=== PATIENT | male | born 2005 | race Caucasian/White ===

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

== ENCOUNTER 2024-04-15 10:32 | Emergency (ER) | payer OTHER ==
[~2024-04-15] VITALS: Ht 170.2 cm; Wt 92.1 kg
[~2024-04-15 10:32] MED LIST: BEN10 PO; MAG-27 PO; MAGN296S48 PO
[2024-04-15 11:06] VITALS: BP 131/83; PULSE 79; RESP 16; TEMP 98.2; O2SAT 97
[2024-04-15] MEDS ORDERED: IBUP-2218 PO (12:36)
[2024-04-15] MEDS ORDERED: ACET500T99 PO (12:36)
== END 2024-04-15 12:46 | disposition home or self-care (01) ==
LOC: MED 10:32
DX: S92.421A Displaced fracture of distal phalanx of right great toe, initial encounter for closed fracture (principal); R03.0 Elevated blood-pressure reading, without diagnosis of hypertension; Z79.1 Long term (current) use of non-steroidal anti-inflammatories (NSAID); Z79.899 Other long term (current) drug therapy; X58.XXXA Exposure to other specified factors, initial encounter; Y93.89 Activity, other specified; Y92.89 Other specified places as the place of occurrence of the external cause; Y99.8 Other external cause status
CPT/HCPCS: 73660; 99283